=== PATIENT | female | born 1990 | race Two or more races ===

== ENCOUNTER 2025-04-05 19:05 | Emergency (ER) | payer MEDICAID, OTHER ==
[~2025-04-05] VITALS: Ht 162.6 cm; Wt 88.9 kg
[2025-04-05 19:19] VITALS: BP 134/68; PULSE 106; RESP 18; TEMP 98.6; O2SAT 97
[2025-04-05 19:42] LABS: Urine Bacteria None Seen /hpf (None Seen)
--- NOTE | 2025-04-05 19:46 | ED.PDOC ---
History of Present Illness HPI Comments This is a 34-year-old female who comes in with chief complaint of lower abdominal pain with diarrhea for the past approximately two weeks. The patient states that approximately 14 30 this evening the symptoms seemed to worsened. She states that the pain was an 8/10 but did go down to a six. The patient is c omplaining of some nausea. There has been no fever or chills. The patient is also complaining of some low back pain. The patient is approximately 17 weeks . Chief Complaint: Abdominal Pain Time Seen by MD: 19:20 Reviewed Notes: Nurses Notes, Medications, Allergies (Allergies to penicillin) Allergies: Coded Allergies: Penicillins (Verified Allergy, Unknown, 04/05/25) Information Source: Patient Mode of Arrival: Ambulatory Severity: Mild Timing: Days Duration: Since onset Prehospital treatment: None Associated signs and symptoms Lower abdominal pain Past Medical History PAST MEDICAL HISTORY: Denies Surgical History: EDUCATION PROGRAM MANAGER History: No Pertinent EDUCATION PROGRAM MANAGER History Family History Family History: Family hx of HTN Social History Smoker: Non-Smoker Alcohol: Denies ETOH Use Drugs: Denies Drug Use Lives In: Home Constitutional: denies: chills, diaphoresis, fatigue, fever, malaise, sweats, weakness, others EENTM: denies: blurred vision, double vision, ear bleeding, ear discharge, ear drainage, ear pain, ear ringing, eye pain, eye redness, hearing loss, mouth pain, mouth swelling, nasal discharge, nose bleeding, nose congestion, nose pain, photophobia, tearing, throat pain, throat swelling, voice changes, others Respiratory: denies: cough, hemoptysis, orthopnea, SOB at rest, shortness of breath, SOB with excertion, stridor, wheezing, others Cardiovascular: denies: chest pain, dizzy spells, diaphoresis, Dyspnea on exertion, edema, irregular heart beat, left arm pain, lightheadedness, palpitations, PND, syncope, others Gastrointestinal: reports: diarrhea, nausea; denies: abdomen distended, abdominal pain, blood streaked bowels, constipated, dysphagia, difficulty sw allowing, hematemesis, melena, poor appetite, poor fluid intake, rectal bleeding, rectal pain, vomiting, others Genitourinary: reports: pain, ; denies: abnormal vagina bleeding, burning, dyspareunia, dysuria, flank pain, frequency, hematuria, incontinence, vagina discharge, urgency, others Neurological: denies: dizziness, fainting, headache, left sided numbness, left sided weakness, numbness, paresthesia, pre-existing deficit, right sided numbness, right sided weakness, seizure, speech problems, tingling, tremors, weakness, others Musculoskeletal: reports: back pain; denies: gout, joint pain, joint swelling, muscle pain, muscle stiffness, neck pain, others Integumetry: denies: bruises, change in color, change in hair/nails, dryness, laceration, lesions, lumps, rash, wounds, others Allergic/Immunocompromised: denies: Difficulty Healing, Frequent Infections, Hives, Itching, others Hematologic/Lymphatic: denies: anemia, blood clots, easy bleeding, easy bruising, swollen glands, others Endocrine: denies: excessive hunger, excessive sweating, excessive thirst, excessive urination, flushing, intolerance to cold, intolerance to heat, unexplained weight gain, unexplained weight loss, others Psychiatric: denies: anxiety, bipolar disorder, depression, hopeless, panic disorder, schizophrenia, sleepless, suicidal, others Physical Exam General Appearance: Mild Distress HEENT: Normal ENT Inspection, Pharynx Normal, TMs Normal Neck: Full Range of Motion, Non-Tender, Normal, Normal Inspection Respiratory: Chest Non-Tender, Lungs Clear, No Accessory Muscle Use, No Respiratory Distress, Normal Breath Sounds Cardiovascular: No Edema, No JVD, No Murmur, No Gallop, Normal Peripheral Pulses, Regular Rate/Rhythm Breast Exam: Deferred Gastrointestinal: No Organomegaly, No Pulsatile Mass, Normal Bowel Sounds, Soft, Suprapubic, Tenderness Genitalia: Deferred Pelvic: Deferred Rectal: Deferred Extremities: No calf tenderness, Normal capillary refill, Normal inspection, Normal range of motion, Non-tender, No pedal edema Musculoskeletal : Apperance: Normal Neurologic: Alert, roving can tender II-XII nml as Tested, No Motor Deficits, Normal Affect, Normal Mood, No Sensory Deficits Cerebellar Function: Normal Reflexes: Normal Skin: Dry, Normal Color, Warm Lymphatic: No Adenopathy Was a procedure done? Was a procedure done?: No Differential Dx Considerations may include: Generalized weakness, threatened , dehydration diarrhea X-Ray, Labs, Meds, VS Vital Signs Date Time Temp Pulse Resp B/P (MAP) Pulse Ox O2 Delivery O2 Flow Rate FiO2 04/05/25 19:19 98.6 106 18 134/68 (90) 97 98.6 Lab Test 04/05/25 19:49 04/05/25 19:41 Range/Units Beta HCG, Quantitative 19966.9 H 1.5-4.2 mIU/mL Urine Color Light-yellow Yellow Urine Clarity Clear Clear Urine pH 6.0 5.0-9.0 Urine Specific [place] 1.025 1.001-1.035 Urine Protein Negative Negative Urine Ketones Negative Negative Urine Blood Negative Negative /uL Urine Nitrite Negative Negative Urine Bilirubin Negative Negative Urine Urobilinogen Normal Negative mg/dL Urine Leukocyte Esterase Negative Negative /uL Urine RBC 1 0 - 4 /hpf Urine Microscopic WBC 1 0-5 /HPF Urine Squamous Epithelial Cells Few <5 /hpf Urine Bacteria None seen None Seen /hpf Urine Glucose Normal Normal mg/dL The urine test [place] [address] The ultrasound of the pelvis shows: IMPRESSION: 1. Single living intrauterine with an estimated gestational age of 16 weeks, 6 days, corresponding to an estimated date of delivery of 09/14/2025. 2. Complete placenta previa at this time. Continued attention on follow-up imaging recommended. At this time, the patient is discharged The patient will follow up with the OBGYN The patient will return to the emergency department's the condition worsens Images Reviewed?: Images reviewed and evaluated by me Time of 1ST Reevaluation: 19:42 Reevaluation 1ST: Improved Patient Education/Counseling: Diagnosis, Treatment, Prognosis, Need For Follow Up Family Education/Counseling: No Family Present Departure 1 Departure Time of Disposition: 19:42 Impression: Primary Impression: Threatened Additional Impression: Diarrhea Qualified Codes: R19.7 - Diarrhea, unspecified Disposition: 01 HOME / SELF CARE / HOMELESS Condition: Fair Discharged With: Self Critical Care Note Critical Care Time?: No Stability Stability form required: No Heart Score Heart Score: Heart Score Response (Comments) Value History N/A 0 EKG N/A 0 Age N/A 0 Risk Factors N/A 0 Troponin N/A 0 Total 0 KRISTIN GREWAL MD Apr 05, 2025 19:46
[2025-04-05 19:58] LABS: Urine Blood Negative /uL (Negative); Urine Clarity Clear (Clear); Urine Color Light-Yellow (Yellow); Urine Protein, UAD Negative (Negative); Urine Specific Gravity 1.025 (1.001-1.035); Urine Squamous Epithelial Cell FEW /hpf (<5); Urine Urobilinogen Normal (Negative); Urine WBC 1 /HPF (0-5)
--- NOTE | 2025-04-05 21:22 | DVH ---
OB ULTRASOUND, LIMITED CLINICAL INDICATION: Pelvic pain TECHNIQUE: Multiple grayscale ultrasound and M-mode images were obtained of the pelvis for evaluation of intrauterine . COMPARISON: None FINDINGS: A single living fetus is seen in transverse head left presentation. Biparietal diameter: 3.67 cm (17 weeks, 2 days) Head Circumference: 12.95 cm (16 weeks, 4 days) Abdomen Circumference: 11.28 cm (17 weeks, 1 days) Femur Length: 2.13 cm (16 weeks, 3 days) Estimated weight: 167 grams (+/- 25 grams). Placenta: Anterior. The placenta is covering the cervical os at this time. Amniotic fluid: Visibly normal. Cervical length is 4.2 cm and closed. heart rate: 161 beats/min. A complete anatomic survey was not performed on this exam. IMPRESSION: 1. Single living intrauterine with an estimated gestational age of 16 weeks, 6 days, jose f esponding to an estimated date of delivery of 09/14/2025. 2. Complete placenta previa at this time. Continued attention on follow-up imaging recommended.
== END 2025-04-06 02:30 | disposition home or self-care (01) ==
LOC: ER 19:11
DX: O20.0 Threatened abortion (principal); O26.892 Other specified pregnancy related conditions, second trimester; O99.891 Other specified diseases and conditions complicating pregnancy; Z98.890 Other specified postprocedural states; Z88.0 Allergy status to penicillin; Z3A.17 17 weeks gestation of pregnancy
CPT/HCPCS: 36415; 76805; 81001; 84702